=== PATIENT | female | born 1940 | race Caucasian/White ===

== ENCOUNTER 2017-06-14 08:34 | Outpatient (CLI) | payer MEDICARE, OTHER ==
[2016-05-23 15:40] VITALS: O2SAT 95
== END 2017-06-14 08:35 | disposition home or self-care (01) | DRG 951 ==
LOC: CONVCARE 08:34
PROVIDERS: ATTEND Orthopaedic Surgery
DX: Z87.39 Personal history of other diseases of the musculoskeletal system and connective tissue (principal); Z96.652 Presence of left artificial knee joint
CPT/HCPCS: 36415; 85048; 85651